=== PATIENT | male | born 1965 | race Caucasian/White ===

== ENCOUNTER 2022-03-26 06:39 | Day surgery (SDC) | payer OTHER, SELFPAY ==
[2022-02-27 11:49] VITALS: BMI 26.1
--- NOTE | 2022-03-23 08:44 | HO.ANESPROP2 ---
Documented by User: Tina Porras NP 03/23/22 08:48 HPI - Anesthesia Eval Consult details Narrative: 56yo M for Left Cataract Extraction IOL Insertion PCP cleared (Recent stress test and PFT - no significant abnormalities) No previous [facility] Past Medical History Medical History Cataract Elevated cholesterol History of asthma HTN (hypertension) Mild heartburn Surgical History Surgical History Hx of colonoscopy Hx of right inguinal hernia repair Social History Social History Patient Tobacco Use Status: Never used Tobacco Use of substances other than those prescribed or required for medical reasons: No Are you DNR?: No Advance Directives: No Advance Directives Information Provided: Yes Advance Directives on File: No Poor oral hygiene: No Meds Allergies Allergy/AdvReac Type Severity Reaction Status Date / Time lisinopril AdvReac Cough Verified 03/26/22 07:04 Home Medications Medication Instructions Recorded Confirmed Last Taken Type irbesartan 75 mg tablet 1 tab PO DAILY 02/27/22 02/27/22 Unknown History pravastatin 20 mg tablet 1 tab PO BEDTIME 02/27/22 02/27/22 Unknown History albuterol sulfate 90 mcg/actuation 2 puff INHALATION Q4-6H PRN 03/26/22 03/26/22 Unknown History aerosol inhaler Exam Exam Date and Time: March 23, 2022 0844 Height,Weight and Vital Signs: Height 6 ft 1 in Weight 89.811 kg Assessment and Plan Assessment Anesthesia Assessment: Chart Reviewed Documented by User: Leobardo Hernandez MD 03/26/22 07:35 [facility] Past Medical History Medical History Cataract Elevated cholesterol History of asthma HTN (hypertension) Mild heartburn Family History Family history of problems with anesthesia: No Surgical History Surgical History Hx of colonoscopy Hx of right inguinal hernia repair Social History Social History Patient Tobacco Use Status: Never used Tobacco Use of substances other than those prescribed or required for medical reasons: No Are you DNR?: No Advance Directives: No Advance Directives Information Provided: Yes Advance Directives on File: No Poor oral hygiene: No Meds Allergies Allergy/AdvReac Type Severity Reaction Status Date / Time lisinopril AdvReac Cough Verified 03/26/22 07:04 Home Medications Medication Instructions Recorded Confirmed Last Taken Type irbesartan 75 mg tablet 1 tab PO DAILY 02/27/22 02/27/22 Unknown History pravastatin 20 mg tablet 1 tab PO BEDTIME 02/27/22 02/27/22 Unknown History albuterol sulfate 90 mcg/actuation 2 puff INHALATION Q4-6H PRN 03/26/22 03/26/22 Unknown History aerosol inhaler Exam Airway Mallampati Class: II TM Dist: >3cm Neck ROM: Full Loose/Missing/Broken Teeth: No Heart: [id number] Lungs: cta b/l Assessment and Plan Assessment Anesthesia Assessment: Anesthesia Plan Discussed Final Anesthetic Review Family History of Problems with Anesthesia: No NPO: Yes ASA Class: II Final Preanesthetic Review: No Changes in Pt Med Stat, Meds/Allgs Chart Reviewed, Consent Obtained/Reviewed and Anes Risks/Benef Reviewed Patient Risk: Intermediate Procedure Risk: Low Assessment/Block/Sedation in SS: Assess/Block/Sedation-SS Anesthetic Plan Anesthetic Plan: MAC: and Agree w/ Assess. and Plan Disposition: Standard PACU
--- NOTE | 2022-03-23 11:29 | MHC.SHP ---
Pre-Procedural Eval Section A Date of Service: 03/23/22 The patient is an INPATIENT: No Changes since office visit: No Cold of Flu in the past 2 weeks, No New Medical Problems, No Changes in Medication and No Patient answered all questions The History & Physical has been completed within 30 days and I have reviewed it.: Yes Section B Chief Complaint: cataract Allergies: Allergies Allergy/AdvReac Type Severity Reaction Status Date / Time No Known Allergies Allergy Verified 03/20/22 10:42 Plan Diagnosis/Plan: Unchanged I have reviewed the history and physical and performed a pertinent physical examination on my patient. No changes have occurred unless specified.
[2022-03-26 07:04] VITALS: BP 146/91; PULSE 64; RESP 16; TEMP 36.3; O2SAT 97
[2022-03-26] MEDS: Tetracaine HCl/PF 0.5% Oph Sol 4 ML DROPS 1 DROP EYE-LEFT (07:08)
[2022-03-26] MEDS: Tropicamide 1 % Ophth Sol 3 ML BTL 1 DROP EYE-LEFT ×3 (07:11→07:21)
[2022-03-26] MEDS: Phenylephrine HCL 2.5% Oph SoL 2 ML BOTTLE 1 DROP EYE-LEFT ×3 (07:15→07:24)
[2022-03-26] MEDS: Lactated Ringers 500 ML 50 ML IV (07:21)
--- NOTE | 2022-03-26 07:57 | HO.PNOPHT ---
Ophthalmology Procedure Procedure Date of Service: 03/26/22 Ophthalmology Viscoelastic: Healzulema Medranot Dual Pack Pro Ophthalmology Lenses: TECEDGAR [id number] (21) Procedure Notes: PREOPERATIVE DIAGNOSIS: Decreased visual acuity left eye secondary to cataract POSTOPERATIVE DIAGNOSIS: Same PROCEDURE: Left cataract extraction with intraocular lens insertion SURGEON: Cameron Fenton M.D. ANESTHESIA: Topical/MAC ESTIMATED BLOOD LOSS: None COMPLICATIONS: None After obtaining informed consent, the patient was brought to the operation room suite and placed in the supine position. After adequate sedation per anesthesia, topical drops of Tetracaine were given to the left eye. The eye was then prepped and draped in the usual sterile fashion. The operating room microscope was then positioned over the operative eye and a lid speculum placed. A paracentesis was created. Viscoelastic was then instilled into the anterior chamber. A three plane incision was then created temporally, utilizing a 2.85 mm keratome. Capsulotomy forceps were then utilized to create a circular tear capsulotomy. Hydrodissection and hydrodelineation were carried out until adequate mobilization of the nucleus occurred. Phacoemulsification was then utilized to remove the dense central nucleus followed by removal of the cortical material utilizing the automated aspiration irrigation unit. Viscoat elastic was instilled into the posterior capsular bag followed by placement of a posterior chamber intraocular lens without difficulty. The residual Viscoat elastic was then removed utilizing the automated IA machine. The wound was check and found to be watertight. The patient tolerated the procedure well and the lid speculum was removed. Intracameral injection of Vigamox 0.1 mL followed by a subtenon injection of Kenalog-40 0.2 mL were administered. The patient will be seen in the a.m.
[2022-03-26 08:19] VITALS: BP 143/86; PULSE 68; RESP 18; TEMP 36.2; O2SAT 98
== END 2022-03-26 08:33 | disposition home or self-care (01) ==
PROVIDERS: PCP Internal Medicine; Visit Provider Ophthalmology
PROC: (CPT 66985; principal; 2022-03-26 08:00)
DX: H25.22 Age-related cataract, morgagnian type, left eye (principal); H35.372 Puckering of macula, left eye; H52.4 Presbyopia; I10 Essential (primary) hypertension; J45.909 Unspecified asthma, uncomplicated; Z79.899 Other long term (current) drug therapy; Z79.51 Long term (current) use of inhaled steroids; Z88.8 Allergy status to other drugs, medicaments and biological substances
CPT/HCPCS: 66984; J2250; J3010; J3300; V2632